=== PATIENT | female | born 1955 | race Caucasian/White ===

== ENCOUNTER 2017-05-30 08:33 | Day surgery (SDC) | payer BC ==
--- NOTE | 2017-05-19 11:10 | HP ---
DATE OF SURGERY: 05/30/2017 HISTORY OF PRESENT ILLNESS: The patient is a 61 year-old with mid upper abdominal pain. CT scan did not show any obvious hernia. She has had some discomfort. Last colonoscopy five years or so ago. She denies any bloody stools. She has had change in bowel movements with three stools a day. Family history negative for colon cancer or inflammatory bowel disease. CT scan showed some sigmoid thickening circumferentially. She is in need of colonoscopy for further evaluation. She is trying to work on losing some weight. PAST MEDICAL HISTORY: Hypertension. PAST SURGICAL HISTORY: Hysterectomy, cholecystectomy, tonsillectomy in the past. MEDICATIONS: Aspirin, metronidazole, moexipril. ALLERGIES: NKDA. FAMILY HISTORY: Diabetes. There is no Crohn's disease. SOCIAL HISTORY: Denies smoking or alcohol abuse. REVIEW OF SYSTEMS: Twelve systems reviewed per admission assessment. No chest pain or palpitations other systems negative or noncontributory as above and per preadmission questionnaire. PHYSICAL EXAMINATION: GENERAL: No acute distress. HEENT: Sclerae nonicteric. NECK: No JVD. CHEST: Equal excursion, nonlabored breathing. CVS: Regular rate and rhythm. ABDOMEN: Soft. No peritoneal signs. EXTREMITIES: No significant edema. NEURO: Alert, oriented, moving extremities symmetrically. No gross motor deficits noted. LAB DATA AND TESTS: CT scan showed no obvious ventral, umbilical or inguinal area hernia but did have sigmoid circumferential wall thickening unsure whether colitis could be excluded in this study. IMPRESSION: Wall thickening on CT scan of the sigmoid colon with some abdominal aches and pains. I feel she would benefit from colonoscopy. Risks and benefits explained in detail including but not limited to bleeding or infection, risk of bowel injury or perforation possibly requiring open procedure, small risk of missed or nondiagnosis or incomplete exam possibly requiring barium enema, other studies or procedures, general risk of anesthesia or sedation, risk of bowel prep, postoperative risk of nausea or cramping but not limited to. She understands and agrees to the planned procedure and will proceed with outpatient diagnostic colonoscopy.
[~2017-05-30 08:33] MED LIST: Lactated Ringers 1,000 ML IV ONE; Lactated Ringers 1,000 ML IV SCH
[2017-05-30] MEDS ORDERED: DIPRIVAN 200 MG/20 ML IV ONE (08:34)
[2017-05-30] MEDS ORDERED: Versed 2 MG/2 ML Injection IV ONE (08:34)
[2017-05-30 12:20] VITALS: O2SAT 96
[2017-05-30 12:33] VITALS: BP 118/61; PULSE 63
--- NOTE | 2017-05-31 08:15 | OP ---
SURGERY DATE/TIME: 05/30/2017 1108 PREOPERATIVE DIAGNOSES: 1) History of some specific abdominal aches. 2) Wall thickening sigmoid colon on CT scan. Need for colonoscopy. POSTOPERATIVE DIAGNOSES: 1) Poor bowel prep limiting exam. 2) Diverticulosis. 3) Tortuous colon. 4) Slight erythema versus prep irritation sigmoid colon. 5) Small raised lesion versus hyperplastic lesion versus early polyp sigmoid colon. 6) Diverticulosis. 7) Small internal and external hemorrhoids. PROCEDURES: 1) Colonoscopy to cecum with hot biopsy. 2) Removal of sigmoid colon early polyp versus hyperplastic lesion. 3) Random cold biopsy sigmoid and descending colon to evaluate for microscopic colitis. SURGEON: Dr. Darryl Mccracken. ANESTHESIA: MAC. ESTIMATED BLOOD LOSS: Minimal. INDICATIONS: As noted above. Risks and benefits explained in detail but not limited to and consent was obtained. DESCRIPTION OF PROCEDURE AND FINDINGS: The patient is taken to the operating room. MAC anesthesia induced. After official time out and no disagreement with planned procedure, digital rectal exam did not reveal any rectal masses. He did have some internal and external hemorrhoids. Video colonoscope inserted and passed up through the poorly prepped colon with a large amounts of semi-solid, liquidy and some solid stool limiting the exam for small lesions. Suction irrigated as well as possible but did limit the exam. The scope slowly and carefully navigated up to the sigmoid, descending and transverse colon. With external pressure. Given the tortuosity of the colon finally loop was reduced enough to allow the cecum to be visualized. Again the prep was poor. A large amount of liquidy, semi-solid and some solid stool limited the exam this was suction irrigated as well as possible but did limit the exam for small lesions. There were no signs of any obvious large lesions in the cecum. The scope is slowly and carefully withdrawn. No signs of any large polyps, masses or obstructing lesions throughout the colon. She did have some diverticulosis in the left colon. In the sigmoid colon, there was one small raised hyperplastic lesion versus early polyp that was removed with hot biopsy polypectomy sent for path. Otherwise there was scant amount of erythema in the sigmoid and descending colon. Whether or not this was just prep irritation or she had a prior transient colitis that had improved but was unclear but cold biopsies are taken. There was no paris obvious mass visible endoscopically on this exam. Otherwise she had some internal and external hemorrhoids. The scope is withdrawn. The patient tolerated the procedure well. There were no immediate complications. Random biopsies done with cold biopsy forceps. The raised lesion versus early polyps or hyperplastic lesion was removed with hot biopsy forceps. Findings discussed with the family out in the waiting area about the fact that she may pass a little bit of blood with the first few bowel movements usually clears on its own. Avoid any blood thinners, NSAID, aspirin for the next week or so. Otherwise as far as the CT scan findings may have had some chronic changes in the sigmoid wall from diverticular disease versus transient colitis that improved or not. Otherwise there had been no obvious paris mass to account for the sigmoid colon thickening. I will see her back in the office to go over the biopsy results next week.
== END 2017-05-30 12:51 | disposition home or self-care (01) ==
LOC: SDC 08:33
PROVIDERS: ATTEND Surgery
PROC: 0DBN8ZX Excision of Sigmoid Colon, Via Natural or Artificial Opening Endoscopic, Diagnostic (ICD-10-PCS; principal; 2017-05-30)
PROC: 0DBM8ZX Excision of Descending Colon, Via Natural or Artificial Opening Endoscopic, Diagnostic (ICD-10-PCS; 2017-05-30)
PROC: 0DBN8ZX Excision of Sigmoid Colon, Via Natural or Artificial Opening Endoscopic, Diagnostic (ICD-10-PCS; 2017-05-30)
DX: K57.90 Diverticulosis of intestine, part unspecified, without perforation or abscess without bleeding (principal); Q43.8 Other specified congenital malformations of intestine; K63.9 Disease of intestine, unspecified; K63.5 Polyp of colon; K64.4 Residual hemorrhoidal skin tags; K64.8 Other hemorrhoids; I10 Essential (primary) hypertension
CPT/HCPCS: 88305; J2250; J2704

== ENCOUNTER 2019-07-21 15:49 | Emergency (ER) | payer BC ==
--- NOTE | 2019-07-21 16:06 | ERPHSYRPT ---
- History of Present Illness Time Seen by Provider: 07/21/19 16:05 Source: patient Exam Limitations: no limitations Physician History: This is a 63-year-old white female who is a patient of Dr. Taylor and for over a week patient has had issues with urinary retention and painful urination. Patient has had a few urinalysis tests which have been negative for urinary tract infection per patient report. Approximately 1 month ago patient underwent a CAT scan of the abdomen pelvis which was also negative for any acute pathology or process intra-abdominally or pelvis. She has associated decreased urine output when there is urine available to urinate. Timing/Duration: week(s) (4 to 6 weeks) Quality: burning, pressure, sharpness Onset Location: suprapubic Pain Radiation: none Severity of Pain-Max: moderate Severity of Pain-Current: moderate Prior abdominal problems: none Sexual intercourse history: non-contributory Modifying Factors: Improves With: urinating Allergies/Adverse Reactions: butorphanol tartrate [From Stadol] Allergy (Severe, Verified 07/21/19 16:14) Rapid Heart Beat "loose my mind" Home Medications: Moexipril/Hydrochlorothiazide [Moexipril-Hctz 15-12.5 mg Tab] 1 each PO DAILY [History] Carvedilol 3.125 mg [Coreg 3.125 MG] 3.125 mg PO BID 05/19/17 [History] Metronidazole Vag Gel [METROGEL Vag Gel 0.75%] 70 gm VG BID 05/19/17 [ History] Vitamin B Complex [B Complex] 1 each PO DAILY 05/19/17 [History] Hx Influenza Vaccination/Date Given: No Hx Pneumococcal Vaccination/Date Given: No Travel Risk - International Travel Have you traveled outside of the country in past 3 weeks: No Have you or anyone close to you been diagnosed with or: No Do your reside in a community with a known COVID-19 case?: Yes If Yes where:: [facility] - Coronavirus Screening Has patient experienced Coronavirus symptoms: No - Review of Systems Constitutional: No Symptoms Eyes: No Symptoms Ears, Nose, & Throat: No Symptoms Respiratory: No Symptoms Cardiac: No Symptoms Abdominal/Gastrointestinal: No Symptoms Genitourinary Symptoms: Dysuria, Frequency, Urinary Retention Musculoskeletal: No Symptoms Skin: No Symptoms Neurological: No Symptoms Psychological: No Symptoms Endocrine: No Symptoms Hematologic/Lymphatic: No Symptoms Immunological/Allergic: No Symptoms All Other Systems: Reviewed and Negative - Past Medical History Pertinent Past Medical History: Yes Neurological History: No Pertinent History ENT History: No Pertinent History Cardiac History: Hypertension, Other Respiratory History: No Pertinent History Endocrine Medical History: No Pertinent History Musculoskeletal History: No Pertinent History GI Medical History: Gallbladder Disease History: No Pertinent History Psycho-Social History: No Pertinent History Female Reproductive Disorders: Endometriosis Other Medical History: recent 'fluttering heart"(states "Dr Taylor had it checked out and it was fine") - Past Surgical History Past Surgical History: Yes Neuro Surgical History: No Pertinent History Cardiac: No Pertinent History Respiratory: No Pertinent History Gastrointestinal: Appendectomy, Cholecystectomy Genitourinary: No Pertinent History Musculoskeletal: No Pertinent History Female Surgical History: Hysterectomy Other Surgical History: t&a,lt ear surgery cyst removed - Social History Smoking Status: Never smoker Exposure to second hand smoke: No Drug Use: none - Nursing Vital Signs Nursing Vital Signs: Initial Vital Signs Pulse Rate 84 07/21/19 17:25 Respiratory Rate 18 07/21/19 17:25 Blood Pressure 116/72 07/21/19 17:25 O2 Sat by Pulse Oximetry 94 L 07/21/19 17:25 Pain Scale Pain Intensity 2 - Physical Exam General Appearance: no apparent distress, alert, anxiety Eye Exam: PERRL/EOMI, eyes nml inspection Ears, Nose, Throat Exam: normal ENT inspection, moist mucous membranes Neck Exam: normal inspection, non-tender, supple, full range of motion Respiratory Exam: normal breath sounds, lungs clear, airway intact, No chest tenderness, No respiratory distress Cardiovascular Exam: regular rate/rhythm, normal heart sounds, normal peripheral pulses Gastrointestinal/Abdomen Exam: soft, normal bowel sounds, tenderness (Mild suprapubic ), No guarding, No rebound Pelvic Exam: not done Rectal Exam: not done Back Exam: normal inspection, normal range of motion, No CVA tenderness, No vertebral tenderness Extremity Exam: normal inspection, normal range of motion, pelvis stable Neurologic Exam: alert, oriented x 3, cooperative, assembly hand II-XII nml as tested, normal mood/affect, nml cerebellar function, nml station & gait Skin Exam: normal color, warm, dry Lymphatic Exam: No adenopathy O2 Delivery: Room Air - Course Nursing assessment & vital signs reviewed: Yes Ordered Tests: Active Orders 24 hr Category Date Time Status IV Insertion STAT Care 07/21/19 16:53 Active CBC W DIFF Stat Lab 07/21/19 16:15 Completed CMP Stat Lab 07/21/19 16:15 Completed CULTURE,URINE Stat Lab 07/21/19 16:45 Received UA W/RFX UR CULTURE Stat Lab 07/21/19 16:45 Completed Medication Summary Generic Name Dose Route Start Last Admin Trade Name Derrick PRN Reason Stop Dose Admin Sodium Chloride 1,000 mls @ 999 mls/hr 07/21/19 16:53 07/21/19 17:13 Sodium Chloride 0.9% 1000 Ml IV 07/21/19 17:53 999 mls/hr .Q1H1M STA Administration Ceftriaxone Sodium/Dextrose 1 g in 50 mls @ 100 mls/hr 07/21/19 17:28 Rocephin 1 Gm-D5w 50 Ml Bag IV 07/21/19 17:57 STAT STA Discontinued Medications Generic Name Dose Route Start Last Admin Trade Name Derrick PRN Reason Stop Dose Admin Sodium Chloride Confirm 07/21/19 17:11 Sodium Chloride 0.9% 1000 Ml Administered 07/21/19 17:12 Dose 1,000 mls @ ud .ROUTE .STK-MED ONE Levofloxacin 500 mg 07/21/19 17:28 Levofloxacin 500 Mg Tablet PO 07/21/19 17:29 STAT ONE Lab/Rad Data: Laboratory Result Diagrams 07/21/19 16:15 07/21/19 16:15 Laboratory Results 07/21/19 07/21/19 07/21/19 Range/Units 16:45 16:15 16:15 WBC 11.8 H (4.0-10.5) K/mm3 RBC 4.86 (4.1-5.4) M/mm3 Hgb 14.3 (12.0-16.0) gm/dl Hct 43.3 (35-47) % MCV 89.1 (78-100) fl MCH 29.4 (26-32) pg MCHC 33.0 (32-36) g/dl RDW 15.0 H (11.5-14.0) % Plt Count 324 (150-450) K/mm3 MPV 11.1 H (7.5-11.0) fl Gran % 73.6 H (36.0-66.0) % Eos # (Auto) 0.10 (0-0.5) Absolute Lymphs (auto) 2.19 (1.0-4.6) Absolute Monos (auto) 0.78 (0.0-1.3) Lymphocytes % 18.6 L (24.0-44.0) % Monocytes % 6.6 (0.0-12.0) % Eosinophils % 0.9 (0.00-5.0) % Basophils % 0.3 (0.0-0.4) % Absolute Granulocytes 8.65 H (1.4-6.9) Basophils # 0.04 (0-0.4) Sodium 141 (137-145) mmol/L Potassium 3.4 L (3.5-5.1) mmol/L Chloride 102 (98-107) mmol/L Carbon Dioxide 29 (22-30) mmol/L Anion Gap 12.3 (5-15) MEQ/L BUN 15 (7-17) mg/dL Creatinine 0.80 (0.52-1.04) mg/dL Estimated GFR > 60.0 ML/MIN Glucose 102 (74-106) mg/dL Calcium 9.7 (8.4-10.2) mg/dL Total Bilirubin 0.60 (0.2-1.3) mg/dL AST 38 H (14-36) U/L ALT 44 H (0-35) U/L Alkaline Phosphatase 77 (38-126) U/L Serum Total Protein 7.8 (6.3-8.2) g/dL Albumin 4.3 (3.5-5.0) g/dL Urine Color YELLOW (YELLOW) Urine Appearance CLOUDY (CLEAR) Urine pH 5.0 (5-6) Ur Specific [place] 1.017 (1.005-1.025) Urine Protein 100 (Negative) Urine Ketones NEGATIVE (NEGATIVE) Urine Blood LARGE (0-5) Marc/ul Urine Nitrite POSITIVE (NEGATIVE) Urine Bilirubin NEGATIVE (NEGATIVE) Urine Urobilinogen NEGATIVE (0-1) mg/dL Ur Leukocyte Esterase MODERATE (NEGATIVE) Urine WBC (Auto) >100 (0-5) /HPF Urine RBC (Auto) >101 (0-2) /HPF U Epithel Cells (Auto) FEW (FEW) /HPF Urine Bacteria (Auto) MODERATE (NEGATIVE) /HPF Urine Mucus (Auto) SLIGHT (NEGATIVE) /HPF Urine Yeast (Budding) Occasional (NEGATIVE) /HPF Urine Culture Reflexed YES (NO) Urine Glucose NEGATIVE (NEGATIVE) mg/dL - Progress Progress: unchanged Air Movement: good Progress Note: 07/21/19 17:32 Medical decision making: This patient has been having significant urinary symptoms including dysuria and urinary retention. She has not been urinating well. She has had a work-up including at least 2 other occasions of urinalysis that been free of any infection. She had a CAT scan of the abdomen and pelvis with approximately 1 month ago that was negative for any acute intra-abdominal pathology. She has been worsening dysuria and urinary frequency in the last 12 to 24 hours. I offered her a straight catheterization, Mack catheter placement , and treatment of a urinary tract infection if one is present. Patient has decided on no catheter placement if there is a urinary tract infection. We will then treat her infection and she will follow-up as an outpatient with her primary care physician and/or her urologist. Blood Culture(s) Obtained: No Antibiotics given: Yes Counseled pt/family regarding: lab results, diagnosis, need for follow-up - Departure Departure Disposition: Home Clinical Impression: Urinary tract infection Condition: Stable Critical Care Time: No Referrals: MORENA TAYLOR MD [Primary Care Provider] - Additional Instructions: Drink plenty of fluids. Take medication as prescribed. Follow-up with Dr. Taylor and a urologist for further management. Prescriptions: Ciprofloxacin [Cipro 500 MG] 500 mg PO BID #14 tablet Phenazopyridine HCl 200 mg [Pyridium 200 mg] 200 mg PO TID #6 tablet
[2019-07-21] MEDS ORDERED: Sodium Chloride 0.9% 1000 ML 1,000 ML IV STA (16:53)
[2019-07-21 16:59] LABS: Absolute Neutrophil Ct (ANC) 8.65 (1.4-6.9); BASOPHIL % 0.3 % (0.0-0.4); Basophil (Absolute #) 0.04 (0-0.4); Eosinophil % 0.9 % (0.00-5.0); Hematocrit 43.3 % (35-47); Hemoglobin 14.3 gm/dl (12.0-16.0); Lymphocyte (Absolute #) 2.19 (1.0-4.6); Lymphocytes % 18.6 % (24.0-44.0); Mean Cell Volume 89.1 fl (78-100); Mean Corpuscular Hemoglobin 29.4 pg (26-32); Mean Platelet Volume 11.1 fl (7.5-11.0); Monocyte (Absolute #) 0.78 (0.0-1.3); Monocytes % 6.6 % (0.0-12.0); Neutrophil % 73.6 % (36.0-66.0); Platelet Count 324 K/mm3 (150-450); Red Blood Count 4.86 M/mm3 (4.1-5.4); White Blood Count 11.8 K/mm3 (4.0-10.5)
[2019-07-21 17:04] LABS: ALBUMIN 4.3 g/dL (3.5-5.0); ALKALINE PHOSPHATASE 77 U/L (38-126); ANION GAP 12.3 MEQ/L (5-15); BLOOD UREA NITROGEN 15 mg/dL (7-17); CHLORIDE 102 mmol/L (98-107); Calcium 9.7 mg/dL (8.4-10.2); Carbon Dioxide 29 mmol/L (22-30); Glucose 102 mg/dL (74-106); Potassium 3.4 mmol/L (3.5-5.1); SGOT/AST 38 U/L (14-36); SGPT/ALT 44 U/L (0-35); SODIUM 141 mmol/L (137-145); Total Protein 7.8 g/dL (6.3-8.2)
[2019-07-21 17:08] LABS: Appearance CLOUDY (CLEAR); Bacteria MODERATE /HPF (NEGATIVE); Bilirubin NEGATIVE (NEGATIVE); Blood LARGE Ery/ul (0-5); Epithelial Cells FEW /HPF (FEW); Glucose NEGATIVE (NEGATIVE); Ketones NEGATIVE (NEGATIVE); Leukocyte Esterase MODERATE (NEGATIVE); Mucus SLIGHT /HPF (NEGATIVE); Nitrite POSITIVE (NEGATIVE); Protein,Urine Dip 100 (Negative); Specific Gravity 1.017 (1.005-1.025); Urobilinogen NEGATIVE mg/dL (0-1); WBC >100 /HPF (0-5)
[2019-07-21 17:09] LABS: Budding Yeast Occasional /HPF (NEGATIVE); RBC >101 /HPF (0-2)
[2019-07-21] MEDS ORDERED: Sodium Chloride 0.9% 1000 ML 1,000 ML ONE (17:11)
[2019-07-21] MEDS ORDERED: ROCEPHIN 1 Gm-D5w 50 ml Bag** 1 G/50 ML IVPB IV STA (17:28)
[2019-07-21] MEDS ORDERED: Levofloxacin 500 MG Tablet PO ONE (17:28)
[2019-07-21] MEDS ORDERED: ROCEPHIN 1 Gm-D5w 50 ml Bag** 1 G/50 ML IVPB IV ONE (17:34)
[2019-07-21] MEDS ORDERED: Levofloxacin 500 MG Tablet ONE (17:34)
[2019-07-21 18:06] VITALS: O2SAT 95
[2019-07-21 18:32] VITALS: BP 153/80; PULSE 74
== END 2019-07-21 18:36 | disposition home or self-care (01) ==
LOC: ED 15:49
DX: N39.0 Urinary tract infection, site not specified (principal); Z79.899 Other long term (current) drug therapy
CPT/HCPCS: 36000; 36415; 80053; 81001; 85025; 87077; 87086; 87186; 96360; 96365; 99284; J0696; A9270-GY

== ENCOUNTER 2022-10-01 05:29 | Day surgery (SDC) | payer BC ==
[~2022-10-01 05:29] MED LIST changes: -Lactated Ringers 1,000 ML IV ONE; -Lactated Ringers 1,000 ML IV SCH; +Pepcid 20 MG VIAL IV ONE; +Reglan 10 MG/2 ML IV ONE; +Transderm Scop 1.5MG Patch TOP PRN
[2022-10-01] MEDS ORDERED: Sensorcaine 0.25% 10 ML IJ ONE (05:30)
[2022-10-01] MEDS ORDERED: EXPAREL 133 MG/10 ML VIAL IJ ONE (05:30)
[2022-10-01] MEDS ORDERED: Lactated Ringers 1,000 ML IV SCH (05:30)
[2022-10-01] MEDS ORDERED: CEFAZOLIN 2 GM-D5W BAG** 2 GM/50 ML ML IV SCH (05:30)
[2022-10-01 05:57] VITALS: RESP 16
[2022-10-01 06:23] LABS: Hematocrit 40.4 % (35-47); Hemoglobin 12.6 g/dL (12.0-16.0); Mean Cell Volume 89.8 fL (78-100); Mean Corpuscular Hgb Concent. 31.2 g/dL (32-36); Mean Platelet Volume 10.7 fL (7.5-11.0); Platelet Count 306 x10^3/uL (150-450); Red Cell Distribution Width 14.1 % (11.5-14.0); White Blood Count 7.6 x10^3/uL (4.0-10.5)
[2022-10-01 06:30] LABS: INR 0.94 (0.8-3.0); PROTIME 10.3 SECONDS (9.4-12.5); PTT 28.2 SECONDS (25.1-36.5)
[2022-10-01 06:48] LABS: ALKALINE PHOSPHATASE 70 U/L (38-126); ANION GAP 9.7 MEQ/L (5-15); BLOOD UREA NITROGEN 14 mg/dL (7-17); CHLORIDE 104 mmol/L (98-107); Calcium 9.1 mg/dL (8.4-10.2); Carbon Dioxide 30 mmol/L (22-30); Creatinine 1 0.68 mg/dL (0.52-1.04); EST GLOMERULAR FILTRATION RATE > 60.0 ML/MIN; Glucose 118 mg/dL (74-106); Potassium 3.9 mmol/L (3.5-5.1); SGOT/AST 31 U/L (14-36); SGPT/ALT 40 U/L (0-35); SODIUM 140 mmol/L (137-145)
[2022-10-01] MEDS ORDERED: Sensorcaine 0.25% 10 ML ONE (07:18)
[2022-10-01] MEDS ORDERED: Marcaine Mpf 0.5% Vial 30 Ml ONE (07:18)
[2022-10-01] MEDS ORDERED: SUBLIMAZE 100 MCG/2 ML ONE ×2 (08:01→10:00)
[2022-10-01] MEDS ORDERED: Versed 2 MG/2 ML Injection ONE (08:01)
[2022-10-01] MEDS ORDERED: Decadron 4 MG INJ ONE ×2 (08:37→09:18)
[2022-10-01] MEDS ORDERED: Xylocaine-Mpf 2% 5 Ml Vial ONE (08:37)
[2022-10-01] MEDS ORDERED: Zofran 4 MG/2 ML VIAL ONE (08:37)
[2022-10-01] MEDS ORDERED: Quelicin Fliptop 200 MG/10 ML ONE (08:37)
[2022-10-01] MEDS ORDERED: DEXMEDETOMIDINE 80 MCG/20ML-NS IV ONE (08:37)
[2022-10-01] MEDS ORDERED: DIPRIVAN 200 MG/20 ML IV ONE (08:37)
[2022-10-01] MEDS ORDERED: OFIRMEV 100 ML IV ONE (08:44)
[2022-10-01] MEDS ORDERED: Pre-Attached Lta Kit TP ONE (08:44)
[2022-10-01] MEDS ORDERED: ROBINUL ONE (09:20)
[2022-10-01] MEDS ORDERED: Ephedrine Sulfate 50 MG/ML ONE (09:21)
[2022-10-01] MEDS ORDERED: Lactated Ringers 1,000 ML IV ONE (09:27)
[2022-10-01] MEDS ORDERED: REMIFENTANIL HCL IV ONE (11:11)
--- NOTE | 2022-10-01 12:28 | XRAY ---
Indication: Right gastrocnemius recession, lapidus arthrodesis, 1st-3rd tarsometatarsal arthrodesis. Intraoperative fluoroscopy provided for 5 minutes 40 seconds. 38 digital spot images submitted for interpretation ultimately demonstrates instrumentation calcaneus and 1st-3rd tarsometatarsal arthrodesis with intact hardware. Correlate with intraoperative findings/report.
[2022-10-01] MEDS ORDERED: TRANDATE 20 MG/4 ML SYRINGE IV ONE (13:18)
[2022-10-01 13:45] VITALS: TEMP 98.8
[2022-10-01 14:11] VITALS: BP 159/93; PULSE 70; O2SAT 92
--- NOTE | 2022-10-01 15:30 | XRAY ---
5 minutes and 48 seconds of fluoroscopy was used in surgery for a gastrocnemius recession, lapidus arthrodesis, 2nd and 3rd transmetatarsal joint arthrodesis, and calcaneal autograft on the right foot.
--- NOTE | 2022-10-04 13:45 | OP ---
SURGERY DATE: 10/01/2022 SURGERY TIME: 901 PREOPERATIVE DIAGNOSIS: 1. RIGHT FOOT PAIN. 2. GASTROCNEMIUS EQUINUS. 3. OSTEOARTHRITIS MIDFOOT. 4. HALLUX ABDUCTOVALGUS RIGHT FOOT. 5. DIFFICULTY WITH AMBULATION. POSTOPERATIVE DIAGNOSIS: 1. RIGHT FOOT PAIN. 2. GASTROCNEMIUS EQUINUS. 3. OSTEOARTHRITIS MIDFOOT. 4. HALLUX ABDUCTOVALGUS RIGHT FOOT. 5. DIFFICULTY WITH AMBULATION. PROCEDURE: 1. Gastrocnemius resection. 2. Calcaneal autograft. 3. Lapidus arthrodesis. 4. Multiple transverse tarsometatarsal joint arthrodesis. 5. Lateral release. SURGEON: Jaspreet Harvey D.P.M. SWITCHBOARD INSTALLER: None. ANESTHESIA: General plus a preoperative popliteal and saphenous block. HEMOSTASIS: A thigh tourniquet set to 325 mm Hg for approximately 110 total tourniquet minutes. ESTIMATED BLOOD LOSS: Approximately 10 cc. MATERIALS: 4-0 Monocryl, 3-0 Nylon, Leodan 4.0 X 36 VPC with an inline fusion plate, a 3.4 X 26 mm VPC, and a 3.4 X 26 VPC for both 2nd and 3rd tarsometatarsal joints, 1 cc of bonus triad with bone marrow aspirate. INJECTABLES: See anesthesia report for details. INDICATIONS FOR PROCEDURE: Yesy is a very pleasant 67 year-old female with a longstanding history of midfoot arthritis as a result of a bunion deformity with a little bit of hypermobility and overload of the central column. From that standpoint, she is led to many degenerative changes to the midfoot. As a result, we had tried multiple modalities of conservative therapy consisting of physician therapy, custom made orthotics, [id number] orthotics, injections, anti-inflammatories, and modification of activity. From that standpoint, the patient has had some minor success. However, has been unable to maintain the success over a long period of time and over the course of the last year, has reverted back to her same level of pain. At this time, the patient wishes to proceed with surgical intervention. She understands all risks, complications, and benefits of surgical intervention at this time including, but not limited to, infection; hematoma/seroma formation; possibility of delayed skin healing or non-skin healing; possibility of delayed union or non-union. There is also a possibility that was discussed with the patient in regards to possible nerve damage over the dorsal aspect of the foot with neuropraxia-type pain. This was discussed at length prior to the procedure and she understands the risks. More seriously, there are also risks as a result of the anesthesia and also with non-weight bearing. The patient has been prophylaxed for infection as well as for a potential deep vein thrombosis and at this time, is willing to proceed with surgical intervention. No guarantees were provided as to the outcome at this time. We decided to proceed. DESCRIPTION OF PROCEDURE: The patient was brought into the PACU and at that time, a popliteal and adductor canal block was provided until the patient's right lower extremity was adequately numb. From that standpoint, the patient was brought in to the OR, placed on the OR table, and placed in the supine position. At this time, general anesthesia was administered until the patient was sedated. A well-padded thigh tourniquet was applied to the patient's right thigh and the tourniquet was set to 325 mm Hg. At this time, the right lower extremity was prepped and draped in the typical sterile fashion and lowered onto the surgical field. Attention was directed to the posteromedial aspect of the right leg where a small linear incision measuring approximately 3 cm long was made through the level of the skin. At this time, blunt dissection was carried out to the level of the crural fascia. The crural fascia was then incised and the posterior aspect of the gastrocnemius was encountered. Once again, blunt dissection was carried out to the posterior aspect of that muscle belly. From that standpoint, the aponeurosis was identified. A pediatric speculum was introduced and then rotated 90 degrees and opened in order to get better access to the gastroc aponeurosis. A 10 blade was utilized to then incise the gastroc aponeurosis. The foot was tested. Any constrictors were released. Range of motion was assessed to be significantly improved following this resection. At this time, copious amounts of sterile saline were utilized to flush the surgical site. 2-0 Vicryl was then utilized to coapt the subcutaneous edges in a simple interrupted buried type fashion. Following this, a 3-0 Nylon was utilized in a horizontal mattress type fashion to coapt the skin edges in an everted type fashion. Following this, attention was directed under fluoroscopic guidance to the safe zone of the lateral wall of the calcaneus where a stab incision was made. This was dissected down to the level of bone utilizing a curved mini-hemostat and then a trocar was introduced for a bone marrow aspirate. This was introduced into the bone utilizing a trocar and a mallet. The obturator was then removed and approximately 50 cc of bone marrow aspirate was removed. This was set off to the side for later use in the procedure. Following this, a 2 mm drill was utilized to penetrate the same site. Varying sizes of the curettes were utilized to pull calcaneal autograft. Approximately 3 cc was removed from this site. From that standpoint, a single simple interrupted stitch was utilized to close this hole. An Esmarch was utilized at this time to exsanguinate the leg and tourniquet was inflated to 325 mm Hg. From this standpoint, attention was directed to the area above the first tarsometatarsal joint at a dorsomedial aspect of the right 1st tarsometatarsal joint where dissection was carried down to the level of the 1st tarsometatarsal joint and the joint was resected. Capsule was removed and resection of the joint was performed utilizing a combination of a sagittal saw, curettes, rongeurs, and curved osteotomes. Following this, attention was directed to the dorsal aspect of the foot under fluoroscopic guidance in the area in between the 2nd and 3rd tarsometatarsal joint. Was checked on an oblique fluoroscopic image. An incision was made approximately 3 cm in length being careful not to damage any neurovascular structures in this area. The deep peroneal nerve as well as the neurovascular bundle was identified and retracted gently out of the way for the remainder of the procedure. The 2nd and 3rd tarsometatarsal joints were then cleared of their osteoarthritic changes and spurring at the dorsal aspect of the joints. From this standpoint, any cartilage was then removed that was remaining within the tarsometatarsal joint and any spurring at the dorsal aspect of the joint was removed. At this time, copious amounts of sterile saline were utilized to flush all the surgical sites. 2 mm drills were utilized to fenestrate as well as a curved osteotome was utilized to increase the surface area. Following this, the graft was introduced when mixed with 1 cc of bonus triad into the deficits and compression devices were utilize to hold compression to the joint. In regards to the 1st tarsometatarsal joint, the 1st ray was then rotated into a varus position in order to correct for the sesamoid position and a tenaculum was utilized from the 2nd to 1st metatarsal heads in order to hold down the position of the 1st tarsometatarsal joint as a compression device at the tarsometatarsal joint was engaged. A single 4.0 X 36 VPC screw was then introduced from a distal dorsal to plantar proximal orientation in the tarsometatarsal joint. The compression distraction device was removed which held the position. A 4-hole inline fusion plate was then utilized to secure the screw from shearing forces and add gained compression. A 1-2 intermetatarsal screw was then held to hold down the intermetatarsal angle. From that standpoint, the 2nd and 3rd tarsometatarsal joints were then compressed utilizing compression distraction device and a 3.4 X 26 mm VPC screw was then introduced from a distal dorsolateral orientation to a plantar proximal medial orientation to the 2nd and 3rd tarsometatarsal joints respectively. Following this, all compression devices as well as temporary fixation devices were removed. Decision was made to proceed with the lateral release which softened the tension on the hallux towards the 2nd digit. This was performed under fluoroscopic guidance. Following this, copious amounts of sterile saline were utilized to flush the surgical sites. 4-0 Monocryl was utilized to coapt the subcutaneous edges in a simple interrupted type fashion and 3-0 Nylon was utilized in a horizontal mattress type fashion to coapt the skin edges in an everted type fashion. A dressing consisting of Betadine, Adaptic, 4 X 4, Kerlix, and a very well-padded posterior splint with sugar tongue was applied to the patient's right lower extremity with the foot orthogonal relative to the longitudinal access of the leg. The patient then was reversed from anesthesia and returned to the postoperative anesthesia care unit with vital signs stable and vascular status intact. The patient handled the anesthesia as well as the procedure without significant complication. Postoperative orders as indicated in the patient's discharge chart.
== END 2022-10-01 14:15 | disposition home or self-care (01) ==
LOC: SDC 05:29
PROVIDERS: ATTEND Podiatrist Foot & Ankle Surgery
DX: M21.961 Unspecified acquired deformity of right lower leg (principal); M79.671 Pain in right foot; M19.071 Primary osteoarthritis, right ankle and foot; M20.11 Hallux valgus (acquired), right foot; R26.2 Difficulty in walking, not elsewhere classified; I10 Essential (primary) hypertension
CPT/HCPCS: 20902; 27687; 28297; 28730; 36415; 73630; 76000; 76937; 80053; 85027; 85610; 85730; C1713; C1762; J0330; J0690; J1100; J2250; J2405; J2704; J3010; A9270-GY